=== PATIENT | male | born 1970 | race Caucasian/White ===

== ENCOUNTER 2024-12-20 17:16 | Emergency (ER) | payer OTHER, SELFPAY ==
--- NOTE | ~2024-12-20 | XR_ITS ---
XR shoulder RT min 2V Ordering provider: Kavin Hanna MD History: . right shoulder pain . Comparison: None. FINDINGS: BONES: No acute fracture or dislocation. Degenerative changes in the area of the greater tuberosity which may indicate rotator cuff injury. JOINT SPACES: The acromioclavicular joint shows osteoarthritic changes. The glenohumeral joint is nor mal. SOFT TISSUES: Normal. IMPRESSION: No acute osseous abnormality right shoulder. Osteoarthritic changes of the acromioclavicular joint. Reviewed, dictated and finalized at location A.
[2024-12-20 17:17] VITALS: BP 140/89; PULSE 93; RESP 18; TEMP 37.1; O2SAT 97
--- NOTE | 2024-12-20 17:19 | ED.UPPEXIN ---
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 He presents to the ED with -- ongoing right shoulder pain which is worse on abducting the right upper extremity. No other injuries noted. complaint: injury to: right and shoulder Onset (ago): day(s) ( Four days) Other Extremity Injury: Right: shoulder Handedness: right Place: home Severity: moderate Relieving factors: immobilization Exacerbating factors: movement of extremity Context: fall Associated symptoms: denies other symptoms Treatments prior to arrival: cold therapy Related Data Allergies Allergy/AdvReac Type Severity Reaction Status Date / Time No Known Allergies Allergy Verified 12/20/24 17:28 Review of Systems Review of Systems: All systems reviewed & are unremarkable except as noted in HPI and below PMFSH Social History Social History (Updated 12/20/24 @ 17:25 by Kavin Hanna MD) Social History: chews tobacco Exam Narrative: blood pressure stable. Const: General: healthy appearing and no acute distress Nutritional Appearance: well nourished Orientation/consciousness: patient oriented x3 Limitations: no limitations HENMT: Head: normal to inspection Ears: external ears normal Face/Nose/Sinus: Normal external nose present Face and sinus: normal facial exam Mouth: Yes Normal oral and palatal mucosa present Throat: posterior oropharynx normal Eyes: Conjunctivae: conjunctivae normal Pupils: Equal, round and reactive pupils present EOM: EOMs intact bilaterally Direct Ophthalmoscopy: no photophobia Neck: Neck: normal visual inspection, no lymphadenopathy and no meningeal signs Chest: Chest palpation & inspection: normal inspection of the chest Resp: Effort & Inspection: normal respiratory effort Auscultation: clear to auscultation bilaterally Cardio: Rate: regular rate Rhythm: regular rhythm GI: GI Palp: Yes Soft to palpation Auscultation: normal bowel sounds : General: Yes no CVA tenderness Back/Spine/Pelvis: Back: no CVA tenderness Skin: General skin exam: normal color Rashes: no rashes Wounds: no wounds Neuro: General: patient oriented x3, moves all extremities, no meningeal signs, no focal motor deficits and CN's II-XI intact bilaterally Cranial nerves: Yes Nystagmus not present Speech: normal speech Extrem: General: normal to inspection Other: Right shoulder-- tenderness in subacromial region. Pain increases on abduction of the shoulder. No restriction of movement except abducti Psych: Affect: normal affect Attitude: cooperative Course Course Emergency Course: Right rotator cuff tendinitis--- x-ray did not show any fracture/ dislocation. 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 accidental fall Vital Signs Vital signs: Vital Signs Temperature 37.1 C 12/20/24 17:17 Pulse Rate 93 12/20/24 17:17 Respiratory Rate 18 12/20/24 17:17 Blood Pressure 140/89 12/20/24 17:17 Pulse Oximetry 97 12/20/24 17:17 Oxygen Delivery Room Air 12/20/24 17:17 Temperature 37.1 C 12/20/24 17:17 Pulse Rate 93 12/20/24 17:17 Respiratory Rate 18 12/20/24 17:17 Blood Pressure 140/89 12/20/24 17:17 Pulse Oximetry 97 12/20/24 17:17 Oxygen Delivery Room Air 12/20/24 17:17 MDM - Extremity Injury (Upper) MDM Narrative Medical decision making narrative: shoulder pain rotator cuff tendinitis Differential Diagnosis Differential diagnosis: Likely dislocation of shoulder Lab Data Attestation: I reviewed the patient's lab results. Discharge Plan Discharge Clinical Impression: Right rotator cuff tendinitis Patient Disposition: Home Condition: Stable Instructions: Antibiotic Form, Rotator Cuff Tendinitis (ED) Patient Language: Hungarian Prescriptions: New meloxicam 15 mg tablet 15 mg PO DAILY Qty: 30 0RF Follow-up/Referrals: UNKNOWN,DOCTOR [Non-Staff] - Time of Disposition: 17:51
[2024-12-20] MEDS: methylPREDNISolone SOD SUCC 125 MG VIAL IM (18:00)
== END 2024-12-20 18:11 | disposition home or self-care (01) ==
LOC: CHSED 18:04
PROVIDERS: Emergency Provider Internal Medicine Critical Care Medicine; PCP Family Medicine
DX: M75.81 Other shoulder lesions, right shoulder (principal); W19.XXXA Unspecified fall, initial encounter
CPT/HCPCS: 73030; 96372; 99283; A4565; J2919

== ENCOUNTER 2025-01-18 07:29 | Outpatient (CLI) | payer OTHER, SELFPAY ==
--- NOTE | ~2025-01-18 | MR_ITS ---
MRI of the right shoulder Technique: Axial proton-density fat-sat images, coronal proton density fat-sat and T2 fat-sat images, and sagittal T1-weighted and T2 fat-sat images were acquired. Clinical History: Pain Findings: There is moderate AC joint degenerative change. Coracoclavicular, coracoacromial, and corac ohumeral ligaments appear intact. There is extensive full-thickness tear involving the majority of the supraspinatus and infraspinatus tendons. Fluid-filled gap measures approximately 4.6 x 4.5 cm in extent. Subscapularis tendon demonst rates moderate to advanced tendinosis. There is rupture of the proximal tendon of long head of the bi ceps which is retracted into the bicipital groove. No labral tear evident. Inferior glenohumeral ligament is intact. There is minimal glenohumeral joint effusion with fluid pas sing through the rotator cuff defect into the subacromial/subdeltoid bursa. No significant degenerati ve change of the glenohumeral joint. There is mild edematous change of the infraspinatus muscle belly . No muscle atrophy evident. Impression: Extensive full-thickness tear involving nearly the entire supraspinatus and infraspinatus tendons, as detailed above. Rupture of the proximal tendon of the long head of the biceps, which is retracted into the bicipital groove. Mild edematous change of the infraspinatus muscle belly, which could reflect muscle strain or contusi on. Moderate AC joint degenerative change. Reviewed, dictated and finalized at [facility]. Impression: Extensive full-thickness tear involving nearly the entire supraspinatus and inf raspinatus tendons, as detailed above. Rupture of the proximal tendon of the long head of the biceps, which is retract ed into the bicipital groove. Mild edematous change of the infraspinatus muscle belly, which could reflect mu scle strain or contusion. Moderate AC joint degenerative change.
--- OUTSIDE RECORDS SUMMARY | 2025-01-18 07:32 | XMS_ITS | Clinical Summary ---
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 Name Role Phone Unavailable Primary Care Provider Unavailabl e Social History Tobacco Use Types Packs/Day Years Used Date Smoking Tobacco: Never Assessed Sex and Gender Information Value Date Recorded Sex Assigned at Not on file Legal Sex Male 10:10 PM [employer] Gender Identity Not on file Sexual Orientation Not on file Plan of Treatment Health Maintenance Due Date Last Done Comments Colorectal Cancer Screening Colonoscopy (10 Years) 1972 Annual Physical 1975 Hepatitis C 1990 DTaP, Tdap and Td Vaccines ( 1 - Tdap) 1991 Hepatitis B Vaccines (1 of 3 - 19+ 3-dose series) 1991 Pneumococcal Vaccine: 50+ Ye ars (1 of 1 - PCV) 2022 Zoster Vaccines (1 of 2) 2022 COVID-19 Vaccine ( - 2023-2 5 season) 2024 Meningococcal B Vaccine Aged Out No l onger eligible based on patient's age to complete this topic Meningococcal Vaccine Aged Out No matthew lovely eligible based on patient's age to complete this topic RSV Immunizations Under 20 Months Aged Out No longer eligible based on patient's age to complete this topic
--- OUTSIDE RECORDS SUMMARY | 2025-01-18 07:33 | XMS_ITS | Data Portability ---
Author Organization [facility], [address] [place] [address] ([place]) Address [address] [place] [address] Assessment Encounter Date Assessment Date Assessment LastModified by Organization Details LastModified Time 01/02/2025 01/02/2025 SUBJECTIVE: Simone Whitman is a pleasant 54-year-old right hand dominant male who presents to the clinic today for evaluation of his right shoulder. 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 He had a fair amount of pain and discomfort at that point in time. He ended up going to [facility] where he had a set of x-rays. He was informed at the Emergency Room to take it easy for the next 10 days or so. He noticed that his right shoulder was not improving and he presents to the [facility] for further evaluation and recommendation. Simone is right hand dominant. He states that keeping it at rest and onto his side does make it feel better. He has the inability of actively lifting his arm up is what he states. Passively, however, he can use his left arm and lift it up after he maneuvers his shoulder in a certain position. He rates it anywhere between a 5-10/10 in intensity. Using it makes it worse. He still continues to work. He has been driving and primarily using his left arm only. He comes into the Orthopedic Department for further evaluation. It is a constant discomfort which he appreciates. It does limit him, affects his quality of life, as well as his activities of daily living. He has been taking meloxicam and Aleve, and he states that he has noticed little to no improvement. He presents today for further evaluation and recommendations. He denies any previous fractures or dislocations or any other issues. REVIEW OF SYSTEMS: Please see patient history form dated 01/02/2025 for PH, FH, SH and review of systems. OBJECTIVE: CONST: Oriented to time, place, and person. EYES: No icterus. ENT: Nasal airways are patent. RESP: Breathing appears normal. No use of accessory muscles. CV: In no obvious distress. MSK: Extremities: no clubbing, cyanosis, or ecchymosis. MSK: SHOULDER: Radial pulse is 2+ sensation intact distally. Patient has full elbow and cervical spine range of motion without pain or discomfort. The patient is right hand dominant. There is diffuse anterior right shoulder tenderness. Limited active motion of that right shoulder. Passively, however, there is no range of motion deficit. There is pain upon isolation of the rotator cuff. There is a positive Fitzpatrick, empty can, Neer's, Speed's, Yergason's. There is a positive drop arm with weakness upon isolation of the rotator cuff in that right upper extremity. There is no significant laxity or subluxation about the shoulder noted today. Loading and rotating the shoulder does not reproduce any painful clicks or pops. Cross body flexion of the shoulder is negative for any reproduction of AC joint pain. I cannot reproduce any pain in the acromioclavicular joint with resisted extension of that shoulder into the frontal plane while holding it in a 90-degree forward flexed position. m SKIN: Skin is intact without erythema. Sensation intact to normal touch without increased temperature. PSYCH: Intact recent and remote memory. Normal mood and affect. Good judgement and insight. Reviewed pertinent diagnostic tests, lab work, and imaging. These were reviewed with the patient. X-rays of the right shoulder from [facility] is negative for acute abnormalities. ASSESSMENT: Right shoulder pain, questionable right rotator cuff rupture. PLAN: I discussed with Simone the above diagnosis and reviewed the exam in detail. I had an extensive conversation in regard to the pathophysiology of the above disease. At this point in time, my recommendation and suggestion is to modify his activities, limit the amount of lifting, pushing, and pulling with that right upper extremity. He has been, for the last almost 3 weeks now, modifying his activities and has been getting by. I really do not want him utilizing that right upper extremity. He is noticing little to no improvement. My suggestion and recommendation is to consider further imaging by obtaining an MRI of that right shoulder without rotator cuff rupture. He does voice understanding. We are going to get that set up at his earliest convenience. We have to get that approved through Worker's Compensation and formulate and appropriate plan of action accordingly. At this time, we are going to go ahead and see him back, we will get the MRI of the shoulder and formulate and appropriate plan of action accordingly. In the event they have problems, questions, or concerns they are to give us a call and we will address these accordingly. They voiced understanding. dmr [email or web address] Not available 01/02/2025 16:06:05 Plan of Treatment Reminders Order Date Submit Date Provider Last Modified By Organization Details Last Modified Time Details Appointments Workman Comp 15.EST 2024 08:00A M Dr. Ebenezer Jackson Not available Not available Not available Lab None recorded. Referral None recorded. Procedures None recorded. Surgeries None recorded. Imaging MRI, shoulder, w/o contrast - r/o RC rupture 2024 025 [id number] Pr Only - [facility], [address] [place] [address], [id number], 01/16/2025 09:35:53 Medication Orders None recorded. Patient TargetsNo targets recorded. Patient InstructionsNo instructions recorded. Reason for Referral None Reported. Problems Name Problem SNOMED Code Status Onset Date Resolution Date Notes Provider Name and Address Organization Details Recorded Time Pain of right shoulder joint [id number] 00 Active 2024 Ebenezer Jackson MD [address] [place] [address], [id number] [place] [address] 5 14:21:30 Problem Notes None recorded. Medical Equipment None Reported. Medications Name Sig Start Date Stop Date Status Note LastModified by Organization Details LastModified Time meloxicam 15 mg tablet TAKE 1 TABLET BY MOUTH ONCE DAILY active Not Available Not Available No t Available Vitals Date Recorded Body height Body mass index (BMI) Body weight Heart rate Oxygen saturation Oxygen saturation in Arterial blood by Pulse oximetry Provider Name and Address Organization Details Last Updated DateTime 5 185.42 cm 29.7 kg/m2 844249. 28 g 93 /min 97 % 97 % Bailey Nina [facility] 13:24:11 Social History None recorded. Functional Status None recorded. Mental Status None recorded. Family History Nothing Reported. Medical History No medical history recorded. Past Encounters Encounter ID Performer Location Encounter Start Date Encounter Closed Date Diagnosis/Indication Diagnosis SNOMED-CT Code Diagnosis ICD10 Code Diagnosis Note [id number] Ebenezer Jackson MD [facility] ([place]) [address] [place] [address],[address] [place] [id number] 01/02/2025 12:56:13 01/02/2025 14:27:14 Pain of right shoulder joint [id number] M25.511 Health Concerns Section Related Observation LastModified by Organization Detai ls LastModified Time None Recorded Concern Status LastModified by Organization Details LastModified Time None Recorded Advance Directives Directive None Recorded Payers Insurance Date Sequence Insurance Name Policy Number Policy Forman Covered Member ID Forman Member ID Guarantor Name 01/02/2025 [facility] [employer] LATOSHA Whitman
== END 2025-01-18 07:30 | disposition home or self-care (01) ==
PROVIDERS: PCP Family Medicine
DX: M25.511 Pain in right shoulder (principal); S46.811A Strain of other muscles, fascia and tendons at shoulder and upper arm level, right arm, initial encounter; S46.111A Strain of muscle, fascia and tendon of long head of biceps, right arm, initial encounter
CPT/HCPCS: 73221

== ENCOUNTER 2025-03-07 09:48 | Outpatient (CLI) | payer OTHER, SELFPAY ==
--- NOTE | 2025-03-07 10:05 | ECG_ITS ---
Test Date: 2025-03-07 10:13:26 Measurements Intervals [place] Rate: 75 P: 48 VT: 145 QRS: 17 QRSD: 98 T: 42 QT: 390 QTc: 437 Interpretive Statements SINUS RHYTHM NORMAL ECG No previous ECG available for comparison Electronically Signed On 03-07-2025 10:25:28 CDT by Wade Serna D.O.
[2025-03-07 10:07] LABS: Hematocrit 46.1 % (40.0-54.0); Hemoglobin 15.2 g/dL (14.0-18.0); Immature Granulocyte Percent A 0.3 % (0.0-0.0); Lymphocytes Absolute Auto 1.54 K/mm3 (1.10-4.50); Mean Corpuscular HGB Conc 33.0 g/dL (32-36); Mean Corpuscular Hemoglobin 29.6 pg (27.0-31.0); Mean Corpuscular Volume 89.7 fL (78.0-102.0); Nucleated Red Blood Cells Absolute Auto 0.00 K/mm3 (0.00-0.00); Nucleated Red Blood Cells Perc 0.0 % (0-0.0); Platelet Count Result 217 K/mm3 (150-420); Red Blood Count 5.14 M/mm3 (4.70-6.10); White Blood Count 6.2 K/mm3 (4.8-10.8)
[2025-03-07 11:03] LABS: Anion Gap 12 mmol/L (4-12); Blood Urea Nitrogen 19 mg/dL (9-20); Calcium 9.7 mg/dL (8.4-10.2); Carbon Dioxide 24 mmol/L (22-30); Chloride 104 mmol/L (98-107); Estimated Glomerular Filt Rate > 60; Glucose 109 mg/dL (65-110); Osmolality Calculated 293 mOsm/kg (285-295); Potassium 5.2 mmol/L (3.4-5.0); Sodium 140 mmol/L (137-145)
== END 2025-03-07 09:49 | disposition home or self-care (01) ==
DX: Z01.818 Encounter for other preprocedural examination (principal)
CPT/HCPCS: 36415; 80048; 85025; 93005